=== PATIENT | female | born 1955 | race Asian ===

== ENCOUNTER 2017-11-18 13:08 | Emergency (ER) | payer MEDICAID ==
[~2017-11-18] VITALS: Ht 154.9 cm; Wt 59.9 kg
[2017-11-18 13:14] VITALS: BP 136/72
[2017-11-18] MEDS ORDERED: HYDROcodone/acetaminophen 10/325mg tab PO STA (13:26)
[2017-11-18] MEDS ORDERED: NAPR-56 PO (13:45)
[2017-11-18] MEDS ORDERED: CYCL-1 PO (13:45)
== END 2017-11-18 13:56 | disposition home or self-care (01) ==
LOC: ER 13:09
DX: S39.012A Strain of muscle, fascia and tendon of lower back, initial encounter (principal); M54.42 Lumbago with sciatica, left side; Z79.899 Other long term (current) drug therapy; X58.XXXA Exposure to other specified factors, initial encounter; Y93.89 Activity, other specified; Y92.89 Other specified places as the place of occurrence of the external cause; Y99.8 Other external cause status
CPT/HCPCS: 99284